=== PATIENT | female | born 2005 | race Caucasian/White ===

== ENCOUNTER 2024-03-14 00:22 | Emergency (ER) | payer SELFPAY ==
[~2024-03-14] VITALS: Ht 172.7 cm; Wt 90.0 kg
[2024-03-14 00:28] VITALS: BP 125/78; RESP 16; TEMP 97.6; O2SAT 99
[2024-03-14 00:29] VITALS: PULSE 111
[2024-03-14 01:10] LABS: BASOPHILS % 0.7 % (0.0-2.0); DIFFERENTIAL COMMENT 0; EOSINOPHILS % 1.6 % (0.0-5.0); HEMATOCRIT. 34.3 % (36.0-48.0); HEMOGLOBIN. 10.8 g/dL (12.0-16.0); LYMPHOCYTES % 10.2 % (20.0-50.0); MEAN CORPUSCULAR HEMOGLOBIN 22.6 pg (28.0-32.0); MEAN CORPUSCULAR HGB CONC 31.5 g/dL (31.0-37.0); MEAN CORPUSCULAR VOLUME 71.8 fL (81.0-99.0); MONOCYTES % 5.1 % (2.0-8.0); NEUTROPHILS % 82.4 % (40.0-76.0); PLATELET 418 x1000/uL (130-400); RED BLOOD CELL COUNT 4.78 mill/uL (4.2-5.4); RED CELL DISTRIBUTION WIDTH 21.9 % (11.6-14.6); WHITE BLOOD COUNT 16.5 x1000/uL (4.5-11.0)
[2024-03-14 01:16] LABS: CHLORIDE 105 mEq/L (98-107); POTASSIUM 3.8 mEq/L (3.5-5.1); SODIUM 141 mEq/L (136-145)
[2024-03-14 01:17] LABS: CALCIUM 9.7 mg/dL (8.7-10.4); CARBON DIOXIDE 25 mEq/L (21-32)
[2024-03-14 01:22] LABS: CREATININE 0.7 mg/dL (0.6-1.0); GLUCOSE 125 mg/dL (70-105); UREA NITROGEN BLOOD 11 mg/dL (9-23)
[2024-03-14 01:24] LABS: ALANINE AMINOTRANSFERASE 47 IU/L (10-49); ALBUMIN 4.7 g/dL (3.2-4.8); ASPARTATE AMINOTRANSFERASE 53 IU/L (<34); BILIRUBIN DIRECT 0.1 mg/dL (<=3.0); BILIRUBIN TOTAL 0.3 mg/dL (0.1-1.0); PROTEIN TOTAL 7.3 g/dL (6.0-8.3)
[2024-03-14 01:30] LABS: HCG SCREEN NEGATIVE; TROPONIN I HIGH SENSITIVITY < 4 ng/L (3.0-34)
[2024-03-14 02:21] LABS: INR 0.9; PROTHROMBIN TIME 10.3 sec (9.6-11.0)
== END 2024-03-14 04:11 | disposition left against medical advice (07) ==
LOC: ER 00:22
DX: R06.02 Shortness of breath (principal); Z53.21 Procedure and treatment not carried out due to patient leaving prior to being seen by health care provider
CPT/HCPCS: 36415; 71045; 80048; 80076; 83880; 84484; 84703; 85025; 93005